=== PATIENT | female | born 1960 | race Two or more races ===

== ENCOUNTER → 2016-05-15 | Outpatient (CLI) | payer MEDICAID ==
[~2016-05-15] VITALS: Ht 160 cm; Wt 79.5 kg
[2016-05-15 07:38] LABS: HCG UR OBC PASS
== END | disposition home or self-care (01) ==
LOC: LDOP 06:54
PROVIDERS: ATTEND Student in an Organized Health Care Education/Training Program
DX: O09.513 Supervision of elderly primigravida, third trimester (principal); O26.893 Other specified pregnancy related conditions, third trimester; R10.9 Unspecified abdominal pain; Z3A.28 28 weeks gestation of pregnancy; Z87.891 Personal history of nicotine dependence
CPT/HCPCS: 59025; 76819; 81025; 99201; G0463